=== PATIENT | male | born 1960 | race Caucasian/White ===

== ENCOUNTER 2017-05-28 16:54 | Emergency (ER) | payer SELFPAY ==
[2017-05-28] MEDS ORDERED: chlordiazePOXIDE HCl 25 MG CAP ONE (18:15)
[2017-05-28] MEDS ORDERED: Lidocaine 1% w/Epinephrine 1:100K 20 ML VIAL ONE (18:16)
[2017-05-28] MEDS ORDERED: Lidocaine 1% PF 5 ML VIAL ONE ×2 (18:18→18:41)
[2017-05-28] MEDS ORDERED: HYDROcodone/Acetaminophen 10/325 mg Tablet ONE ×2 (20:21→21:08)
== END 2017-05-28 21:17 | disposition home or self-care (01) ==
LOC: ERS 16:54
DX: S68.021A Partial traumatic metacarpophalangeal amputation of right thumb, initial encounter (principal); S62.521B Displaced fracture of distal phalanx of right thumb, initial encounter for open fracture; F17.210 Nicotine dependence, cigarettes, uncomplicated; W23.0XXA Caught, crushed, jammed, or pinched between moving objects, initial encounter
CPT/HCPCS: 11760; 99406; J2001

== ENCOUNTER 2023-09-08 12:46 | Inpatient (IN) | payer MEDICAID ==
[~2023-09-08 12:46] MED LIST: Iopamidol-370 76% 500 ML MDV (1 ML CHARGE) ONE
[2023-09-08 13:31] LABS: #Basophils Less than 0.03 10x3/uL (0.0-0.2); %Basophils 0.3 % (0.0-1.0); %Eosinophils 4.1 % (0.0-10.0); %Monocytes 10.5 % (0.0-10.0); %Neutrophils 69.6 % (42.0-75.0); Hematocrit 28.1 % (42.0-52.0); Hemoglobin 9.4 g/dL (14.0-18.0); Mean Corpuscular HGB CONC 33.5 g/dL (32.0-36.0); Mean Corpuscular Volume 86.7 fL (78.0-98.0); Mean Platelet Volume 8.9 fL (7.4-10.4); Platelet Count 296 10x3/uL (130-400); RBC Distribution Width 15.3 % (11.5-14.5); Red Blood Cell (RBC) Count 3.24 mill/uL (4.70-6.10)
[2023-09-08 13:49] LABS: ALT (SGPT) Less than 5 U/L (8-55); AST (SGOT) 9 U/L (5-34); Albumin 2.1 g/dL (3.4-4.8); Alkaline Phosphatase 73 U/L (40-110); Anion Gap 13 mmol/L (10-20); BUN (Urea Nitrogen) 6 mg/dL (8.4-25.7); Bilirubin, Total 0.4 mg/dL (0.2-1.2); Calc. Creatinine Clearance 0 mL/min (70-130); Calcium 8.1 mg/dL (7.8-10.44); Carbon Dioxide 20 mmol/L (23-31); Chloride 106 mmol/L (98-107); Estimated GFR 99; Globulin 3.3 g/dL (2.4-3.5); Glucose 92 mg/dL (80-115); Lipase 8 U/L (8-78); Magnesium 1.9 mg/dL (1.6-2.6); Potassium 3.6 mmol/L (3.5-5.1); Protein, Total 5.4 g/dL (5.8-8.1); Sodium 135 mmol/L (136-145)
[2023-09-08 13:54] LABS: Troponin I Less than 0.010 ng/mL (< 0.028)
[2023-09-08] MEDS ORDERED: LORazepam 2 MG/ML SYR.(CARPUJECT) ONE (13:59)
[2023-09-08 14:05] LABS: Bacteria/HPF None Seen HPF (None Seen); Bilirubin 1+ (Negative); Blood, Urine 3+ (Negative); CAUTI Indications for Culture Dysuria,urgency,freq; Calcium Oxalate Crystals 1+ HPF (None Seen); Clarity Turbid (Clear); Glucose, Urine (Dipstick) Normal (Negative); Ketone, Urine Negative (Negative); Leukocyte Negative Leu/uL (Negative); Nitrite 2+ (Negative); Protein, Urine (Dipstick) 70 mg/dL (Neg-Trace); RBC/HPF Greater than 50 HPF (0-3); Specific Gravity, Urine 1.021 (1.002-1.036); Squamous Epithelial 0-3 HPF (0-3); Urobilinogen 3 mg/dL (Less than 2); WBC/HPF 21-50 HPF (0-3); pH, Urine 5.5 (5.0-9.0)
[2023-09-08] MEDS ORDERED: Ondansetron PF 4 MG/2 ML Vial IVP PRN ×2 (14:05→15:14)
[2023-09-08] MEDS ORDERED: cefTRIAXone (ROCEPHIN) 1 GM VIAL ONE (14:16)
[2023-09-08] MEDS ORDERED: Dexamethasone 10 MG/ML VIAL ONE (14:16)
[2023-09-08] MEDS ORDERED: levETIRAcetam 500 MG (5 mL) VIAL ONE (14:16)
[2023-09-08 14:27] LABS: Urine Culture Reflex Yes Yes
[2023-09-08] MEDS ORDERED: Lorazepam 2 MG/ML VIAL SLOW IVP PRN (14:32)
[2023-09-08] MEDS ORDERED: hydrALAZINE 20 MG/ML VIAL SLOW IVP PRN (15:13)
[2023-09-08 15:29] LABS: Acetaminophen Less than 10 mcg/mL (10.0-30.0); Alcohol Less than 10.0 mg/dL (Less than 10)
[2023-09-08 15:42] LABS: Salicylate Less than 8.0 mg/dL (15.0-30.0)
[2023-09-08] MEDS ORDERED: Phenazopyridine HCl 100 MG TAB PO PRN (18:02)
[2023-09-08] MEDS: Gabapentin 100 MG CAP PO SCH (20:30)
[2023-09-08] MEDS: Dexamethasone 4 MG TAB PO SCH (20:30)
[2023-09-08] MEDS: Docusate 100 MG CAP PO SCH (20:30)
[2023-09-08] MEDS: Cyclobenzaprine 10 MG TAB PO SCH (20:30)
[2023-09-08] MEDS: levETIRAcetam 500 MG (5 mL) VIAL SLOW IVP SCH ×2 (20:30→22:26)
[2023-09-08] MEDS: Pantoprazole DR 40 MG TAB PO SCH (20:30)
[2023-09-09] MEDS: Acetaminophen 325 MG TAB PO PRN (02:35)
[2023-09-09 04:20] LABS: #Basophils Less than 0.03 10x3/uL (0.0-0.2); #Eosinphils Less than 0.03 10x3/uL (0.0-0.7); %Lymphocytes 11.9 % (21.0-51.0); %Monocytes 4.6 % (0.0-10.0); %Neutrophils 83.3 % (42.0-75.0); Hematocrit 27.7 % (42.0-52.0); Hemoglobin 8.8 g/dL (14.0-18.0); Mean Corpuscular HGB CONC 31.8 g/dL (32.0-36.0); Mean Corpuscular Hemoglobin 27.7 pg (27.0-31.0); Mean Corpuscular Volume 87.1 fL (78.0-98.0); Platelet Count 307 10x3/uL (130-400); RBC Distribution Width 14.7 % (11.5-14.5); Red Blood Cell (RBC) Count 3.18 mill/uL (4.70-6.10)
[2023-09-09 04:54] LABS: Anion Gap 12 mmol/L (10-20); BUN (Urea Nitrogen) 5 mg/dL (8.4-25.7); Calc. Creatinine Clearance 105 mL/min (70-130); Calcium 8.3 mg/dL (7.8-10.44); Carbon Dioxide 20 mmol/L (23-31); Chloride 108 mmol/L (98-107); Estimated GFR 102; Glucose 143 mg/dL (80-115); Potassium 4.1 mmol/L (3.5-5.1); Sodium 136 mmol/L (136-145)
[2023-09-09] MEDS: Pantoprazole DR 40 MG TAB PO SCH (07:29)
[2023-09-09] MEDS: Oxybutynin 5 MG TAB PO SCH (07:29)
[2023-09-09] MEDS: cefTRIAXone\\ROCEPHIN 1 GM in Sodium Chloride 0.9% 100 ML IVPB SCH (14:49)
[2023-09-09] MEDS: Hydrocortisone 1% Cream 30 GM TUBE TOP SCH (14:49)
[2023-09-09 17:00] VITALS: BMI 26.1
[2023-09-09] MEDS: levETIRAcetam 500 MG TAB PO SCH (20:20)
[2023-09-10 08:38] VITALS: TEMP 97.7
== END 2023-09-10 14:10 | disposition home or self-care (01) | DRG 54 ==
LOC: ERS 12:46 → IMCU/EMU 16:07
PROVIDERS: ADMIT Internal Medicine; ATTEND Family Medicine
PROC: 4A00X4Z Measurement of Central Nervous Electrical Activity, External Approach (ICD-10-PCS; principal; 2023-09-09)
DX: C79.31 Secondary malignant neoplasm of brain (principal); G93.6 Cerebral edema; N39.0 Urinary tract infection, site not specified; C78.7 Secondary malignant neoplasm of liver and intrahepatic bile duct; C78.00 Secondary malignant neoplasm of unspecified lung; G40.909 Epilepsy, unspecified, not intractable, without status epilepticus; Z85.53 Personal history of malignant neoplasm of renal pelvis; R33.9 Retention of urine, unspecified; Z79.899 Other long term (current) drug therapy
CPT/HCPCS: 36415; 36416; 70470; 70553; 71045; 74177; 80048; 80053; 80177; 80307; 81001; 83605; 83690; 83735; 84484; 85025; 87040; 87086; 93005; 95700; 95711; 95819; J0696; J1100; J1953; J2060; J3490; J8540; Q9967